=== PATIENT | male | born 1995 | race Caucasian/White ===

== ENCOUNTER 2016-12-12 22:40 | Emergency (ER) | payer BC ==
[~2016-12-12] VITALS: Ht 175.3 cm; Wt 71.6 kg
[~2016-12-12 22:40] MED LIST: MISCCAP80 PO
[2016-12-12 22:43] VITALS: TEMP 36.9; Ht 175.3 cm; Wt 71.6 kg
--- NOTE | 2016-12-13 00:04 | EMERGENCY ROOM VISIT NOTE ---
History First contact with patient: 22:46 Chief Complaint: BACK PAIN Stated Complaint: RT UPPER BACK PAIN History of Present Illness The patient is a 21 year old male who presents to the Emergency Room with complaints of right upper back pain. The patient states that he was playing intramural football this evening and fell down and was kneed in the right upper back. He has had persistent pain since then and rates his discomfort a 5/10. He denies any shortness of breath or chest pain. He denies any other injuries. Review of Systems A complete 10 point review of systems was reviewed with the patient with pertinent positives and negatives as per history of present illness. All else were negative. Past Medical/Surgical History Medical Problems: (1) No significant past medical history Surgical Problems: (1) History of appendectomy (2) History of colonoscopy Family History FH: cancer FH: heart disease FH: hypertension FH: kidney disease Social History Smoking Status: Never Smoker Alcohol Use: none Marital Status: single Housing Status: lives with friends Occupation Status: employed, [employer] student Current/Historical Medications Scheduled Cyclobenzaprine Hcl (Flexeril), 10 MG PO TID Physical Exam Vital Signs Date Time Temp Pulse Resp B/P (MAP) Pulse Ox O2 Delivery O2 Flow Rate FiO2 12/13/16 00:23 57 110/63 95 12/12/16 22:43 36.9 73 20 138/80 97 Room Air Physical Exam VITALS: Vitals are noted on the nurse's note and reviewed by myself. Vital signs stable. GENERAL: This is a 21-year-old male, in no acute distress, nondiaphoretic, well- developed well-nourished. SKIN: The skin was without rashes, erythema, edema, or bruising. HEART: Regular rate and rhythm without murmurs gallops or rubs. LUNGS: Clear to auscultation bilaterally without wheezes, rales or rhonchi. MUSCULOSKELETAL: There is tenderness to palpation of the right posterior ribs. There is no tenderness of the thoracic spinous processes. NEURO: Patient was alert and oriented to person place and time. Medical Decision & Procedures ER Provider Diagnostic Interpretation: CHEST W/ RIGHT RIB DETAIL: No acute fractures. No pneumothorax. Medical Decision Differential diagnosis includes rib fracture, rib contusion, sprain, among others. The patient is a 21-year-old male who presents today complaining of with right posterior rib/back pain after an injury earlier today. The patient is tender to palpation over the right posterior lower ribs. X-rays of the ribs were obtained and reviewed by myself and do not show any obvious rib fractures or cardiopulmonary abnormalities. The patient was informed of the findings. He was given a home pack and prescription of Flexeril. Conservative measures were discussed. Based on the patient's presentation and work up, I feel the patient is stable for outpatient treatment. The patient was educated to return to the emergency department for any worsening of their current condition or new/concerning symptoms. He will follow up with S as needed. Medication Reconcilliation Current Medication List: was personally reviewed by me Blood Pressure Screening Patient's blood pressure: Normal blood pressure Impression Primary Impression: Contusion of rib on right side Departure Information Dispostion Home / Self-Care Condition GOOD Prescriptions Cyclobenzaprine Hcl (FLEXERIL) 10 Mg Tab 10 MG PO TID for 3 Days, #9 TAB Prov: Paula Asif .AYANA 12/13/16 Referrals [facility] (PCP) Patient Instructions [facility] Additional Instructions For pain control, you can use the following [id number] medicines (if >12 yo): - Regular strength (325mg/tab) Tylenol (acetaminophen) 2 tabs every 4-6 hours as needed. Do not exceed 12 tablets in a 24 hour period. Avoid taking more than 4 grams (4000 mg) of Tylenol per day. This includes any other sources of acetaminophen you may take on a regular basis. - Regular strength (200 mg/tab) Advil (ibuprofen) 1-2 tabs every 4-6 hours as needed. Do not exceed a dose of 3200 mg per day. Apply ice to the ribs as needed for pain. You have been prescribed Flexeril (cyclobenzaprine) 1 tabs orally, three times per day. Do NOT exceed 30 mg (6 tabs) per day. Take your first dose at bedtime as it can make you drowsy. Always take all medications as prescribed. Follow-up with [facility] services if there is persistent or worsening pain in the ribs. Problem Qualifiers Primary Impression: Contusion of rib on right side Encounter type: initial encounter Qualified Codes: S20.211A - Contusion of right front wall of thorax, initial encounter
[2016-12-13] MEDS ORDERED: CYCL10TA6 PO (00:13)
[2016-12-13] MEDS ORDERED: FLEXERIL HOME PACK 10 MG VIAL PO ONE (00:15)
[2016-12-13 00:23] VITALS: BP 110/63; PULSE 57; O2SAT 95
--- NOTE | 2016-12-13 07:14 | DIAGNOSTIC IMAGING REPORT ---
PA CHEST WITH RIGHT-SIDED RIB SERIES CLINICAL HISTORY: Right-sided rib injury. FINDINGS: A PA chest radiograph with 4 additional views may right-sided rib series is obtained. No prior studies are available for comparison at the time of dictation. The cardiomediastinal silhouette is unremarkable. The lungs and pleural spaces are clear. No pneumothorax is seen. There is no radiographic evidence of right-sided rib fracture on the rib series. The remainder of the bony thorax is grossly intact. IMPRESSION: 1. The lungs are clear. 2. There is no radiographic evidence of right-sided rib fracture as clinically queried. Electronically signed by: William Stevens M.D. 12/13/2016 7:12 AM Dictated Date/Time: 12/13/2016 7:11 AM
== END 2016-12-13 00:24 | disposition home or self-care (01) ==
LOC: C.EDB 22:41 → C.EDC 12-13 00:24
DX: S20.211A Contusion of right front wall of thorax, initial encounter (principal); W50.0XXA Accidental hit or strike by another person, initial encounter; Y93.61 Activity, american tackle football; Y92.838 Other recreation area as the place of occurrence of the external cause; Z82.49 Family history of ischemic heart disease and other diseases of the circulatory system; Z84.1 Family history of disorders of kidney and ureter